=== PATIENT | male | born 1985 | race Caucasian/White ===

== ENCOUNTER 2025-07-27 13:02 | Emergency (ER) | payer OTHER, SELFPAY ==
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
[2025-07-27 13:30] VITALS: BP 145/88; PULSE 71; RESP 14; TEMP 36.6; O2SAT 97; BMI 28.1
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
[2025-07-27 13:52] VITALS: BP 136/85; PULSE 79; O2SAT 96
[2025-07-27 14:28] VITALS: BP 120/85; PULSE 76; O2SAT 96
== END 2025-07-27 14:29 | disposition home or self-care (01) ==
PROVIDERS: Emergency Provider Physician Assistant
DX: M54.6 Pain in thoracic spine (principal)
CPT/HCPCS: 72072; 99283